=== PATIENT | female | born 1950 | race African-American/Black ===

== ENCOUNTER 2018-05-01 12:39 | Observation (INO) ==
[2018-05-01] MEDS ORDERED: ONDANSETRON 4 MG/2 ML VIAL IV PRN (13:06)
[2018-05-01] MEDS ORDERED: ACETAMINOPHEN 325 MG TABLET PO PRN (13:06)
[2018-05-01 14:24] LABS: Basophils % 0.3 % (0.0-0.8); Hematocrit 37.1 VOL% (35.7-47.0); Hemoglobin 12.4 GM/DL (12.0-16.0); Immature Granulocytes % 0.5 %; Immature Granulocytes Absolute 0.03 #; Lymphocytes # 0.5 10*3/uL (1.4-4.0); Lymphocytes % 7.5 % (21.3-54.2); Mean Corpuscular HGB Conc 33.4 GM/DL (32-36); Mean Corpuscular Hemoglobin 31 PG (27-34); Mean Corpuscular Volume 92.8 FL (87-102); Mean Platelet Volume 10.5 FL (9.6-12.0); Monocytes # 0.3 10*3/uL (0.11-0.8); Monocytes % 5.2 % (1.7-12.7); Neutrophils # 5.7 10*3/uL (1.4-7.4); Neutrophils % 86.5 % (38.7-73.9); Platelet Count 199 T/CUMM (130-400); White Blood Count 6.6 T/CUMM (4-12)
[2018-05-01 14:34] LABS: PT Patient Result 10.8 SECS; Partial Thromboplastin Time 32.7 SECS (0-40)
[2018-05-01 14:52] LABS: Albumin 3.2 G/DL (3.4-5.0); Bilirubin,Total 0.6 MG/DL (0.2-1.0); Calcium 10.9 MG/DL (8.5-10.1); Osmolality,Calculated 272.8 MOS/KG (273-304); Potassium 3.6 MMOL/L (3.5-5.1)
[2018-05-01 16:04] LABS: Troponin I 0.023 NG/ML (0.00-0.045)
[2018-05-01] MEDS ORDERED: hydrALAZINE 20 MG/1 ML VIAL IV PRN (16:24)
[2018-05-01 18:44] LABS: Troponin I 0.029 NG/ML (0.00-0.045)
[2018-05-01] MEDS: CARVEDILOL 3.125 MG TABLET PO SCH (20:53)
[2018-05-02 01:40] LABS: Basophils % 0.4 % (0.0-0.8); Eosinophils % 0.4 % (0.00-10.9); Hematocrit 34.6 VOL% (35.7-47.0); Hemoglobin 11.2 GM/DL (12.0-16.0); Immature Granulocytes % 0.2 %; Immature Granulocytes Absolute 0.01 #; Lymphocytes % 20.4 % (21.3-54.2); Mean Corpuscular HGB Conc 32.4 GM/DL (32-36); Mean Corpuscular Hemoglobin 30 PG (27-34); Mean Corpuscular Volume 92.8 FL (87-102); Mean Platelet Volume 10.6 FL (9.6-12.0); Monocytes # 0.5 10*3/uL (0.11-0.8); Monocytes % 10.5 % (1.7-12.7); Neutrophils # 3.2 10*3/uL (1.4-7.4); Neutrophils % 68.1 % (38.7-73.9); Platelet Count 167 T/CUMM (130-400); Red Blood Count 3.73 MC/CUMM (3.8-5.5); Red Cell Distribution Width 13.2 % (9.3-17.3); White Blood Count 4.8 T/CUMM (4-12)
[2018-05-02 01:59] LABS: Calcium 10.6 MG/DL (8.5-10.1); Osmolality,Calculated 275.7 MOS/KG (273-304); Potassium 3.7 MMOL/L (3.5-5.1)
[2018-05-02 02:03] LABS: Risk Ratio 2.75; Troponin I 0.032 NG/ML (0.00-0.045)
[2018-05-02 05:36] LABS: Apearance,Urine CLEAR (Clear); Bilirubin,Urine Negative (Negative); Blood, Urine Negative (Negative); Glucose,Urine (UA) Negative (Negative); Ketones,Urine Negative (Negative); Mucus,Urine Occasional /LPF (Occasional); Nitrite,Urine Negative (Negative); Protein,Urine 30 MG/DL; RBC,Urine 2 /HPF (0-4); Squamous Epithelial Cell,Urine Occasional /HPF (0-10); Urine Color Yellow (Yellow); Urine Specific Gravity 1.021 (1.001-1.035); WBC,Urine 1 /HPF (0-6)
[2018-05-02 05:39] LABS: Barbiturates Screen,Urine Negative (Negative); Benzodiazepines Screen,Urine Negative (Negative); Cannabinoid Screen,Urine Negative (Negative); Opiate Screen,Urine Negative (Negative); Phencyclidine Screen,Urine Negative (Negative)
[2018-05-02] MEDS: LOSARTAN/HCTZ 50-12.5 MG TABLET PO SCH (09:30)
[2018-05-02] MEDS: DOCUSATE SODIUM 100 MG CAPSULE PO SCH ×2 (09:34→21:41)
[2018-05-02] MEDS: ATORVASTATIN 20 MG TABLET PO SCH (09:34)
[2018-05-02] MEDS: ASPIRIN EC 81 MG TABLET PO SCH (09:34)
[2018-05-02] MEDS: PANTOPRAZOLE 40 MG TABLET PO SCH (09:34)
[2018-05-02] MEDS: CARVEDILOL 3.125 MG TABLET PO SCH ×2 (09:34→21:41)
[2018-05-02] MEDS: levETIRAcetam 500 MG TABLET PO SCH (21:41)
[2018-05-03 08:00] VITALS: BP 140/87
[2018-05-03] MEDS: CARVEDILOL 3.125 MG TABLET PO SCH (08:55)
[2018-05-03] MEDS: levETIRAcetam 500 MG TABLET PO SCH (08:55)
[2018-05-03] MEDS: PANTOPRAZOLE 40 MG TABLET PO SCH (08:55)
[2018-05-03] MEDS: DOCUSATE SODIUM 100 MG CAPSULE PO SCH (08:55)
[2018-05-03] MEDS: ATORVASTATIN 20 MG TABLET PO SCH (08:55)
[2018-05-03] MEDS: ASPIRIN EC 81 MG TABLET PO SCH (08:55)
[2018-05-03] MEDS: LOSARTAN/HCTZ 50-12.5 MG TABLET PO SCH (09:05)
== END 2018-05-03 14:56 | disposition home health service (06) ==
LOC: N.2W → N.TELEN 14:47
PROVIDERS: ADMIT Family Medicine; ATTEND Family Medicine